=== PATIENT | female | born 1985 | race African-American/Black ===

== ENCOUNTER 2016-10-21 23:56 | Emergency (ER) | payer OTHER ==
[~2016-10-21] VITALS: Ht 160 cm; Wt 125.0 kg
[2016-10-22] MEDS ORDERED: IBUPROFEN 400MG TABLET PO ONE (02:00)
[2016-10-22] MEDS ORDERED: HYDROCODONE/ACETAMINOPHEN 10/325MG TABLET PO ONE (02:45)
[2016-10-22 03:26] VITALS: BP 136/74
== END 2016-10-22 04:13 | disposition home or self-care (01) ==
LOC: ER 10-22 00:19
DX: S82.251A Displaced comminuted fracture of shaft of right tibia, initial encounter for closed fracture (principal); S80.11XA Contusion of right lower leg, initial encounter; Z98.890 Other specified postprocedural states; V28.0XXA Motorcycle driver injured in noncollision transport accident in nontraffic accident, initial encounter; Y93.89 Activity, other specified; Y92.488 Other paved roadways as the place of occurrence of the external cause
CPT/HCPCS: 73590; 99284; Z7610